=== PATIENT | male | born 1985 | race Hispanic/Latino ===

== ENCOUNTER 2022-06-28 17:16 | Emergency (ER) | payer SELFPAY ==
[2022-06-28] VITALS (8 sets, daily range): BP systolic 97–116; BP diastolic 63–84
[~2022-06-28] VITALS: Ht 172.7 cm; Wt 90.6 kg
[2022-06-28 18:16] LABS: BASO% 0.3 % (0-3); EOS% 1.6 % (0-8); HEMATOCRIT 42.4 % (39.0-50.0); HEMOGLOBIN 14.5 g/dl (14.0-18.0); IMMATURE GRANULOCYTES 0.1 % (0.0-5.0); LYMPH% 27.9 % (15-41); MEAN CELL VOLUME 89.3 fL CALC (80.0-100.0); MEAN CORPUSCULAR HGB 30.5 pG CALC (26.0-32.0); MEAN CORPUSCULAR HGB CONC 34.2 g/dL CAL (32.0-36.0); NEUT# 4.42 thou/uL (1.82-7.42); NEUT% 64.1 % (42-76); RED BLOOD COUNT 4.75 mill/uL (4.70-6.10); RED CELL DISTRI WIDTH 12.4 % (11.5-15.5)
[2022-06-28 18:26] LABS: ALBUMIN 4.8 g/dL (3.2-5.0); ALKALINE PHOSPHATASE 88 u/l (38-126); ANION GAP 14 (6-22 (CALC)); BILIRUBIN, TOTAL 0.5 mg/dL (0.2-1.3); BUN 17 mg/dL (9-20); BUN/CREATININE RATIO 15 (12-20 (CALC)); CARBON DIOXIDE 25 mmol/l (22-30); CHLORIDE 104 mmol/l (95-108); CREATININE 1.2 mg/dL (0.7-1.3); GFR FOR AFR.AMER. > 60 ML/MIN (>=60 (CALC)); GFR OTHER RACES > 60 ML/MIN (>=60 (CALC)); LIPASE 85 u/l (23-300); POTASSIUM 4.1 mmol/l (3.5-5.1); SGOT/AST 50 u/l (17-59); SODIUM 139 mmol/l (137-146); TOTAL PROTEIN 8.3 g/dL (6.3-8.2)
[2022-06-28] MEDS ORDERED: PROTONIX40 M2 PO (20:57)
[2022-06-28] MEDS ORDERED: CITRATE OF MEGNESIA PO (20:57)
[2022-06-28] MEDS ORDERED: METRONIDAZOLE500 MG PO (20:57)
[2022-06-28] MEDS ORDERED: CIPROFLOXACN500 MG PO (20:57)
== END 2022-06-28 21:20 | disposition home or self-care (01) | DRG 392 ==
LOC: EDBD 17:16 → ED 17:16
PROVIDERS: Family Medicine
DX: K29.70 Gastritis, unspecified, without bleeding (principal); K57.92 Diverticulitis of intestine, part unspecified, without perforation or abscess without bleeding; R11.2 Nausea with vomiting, unspecified
CPT/HCPCS: Q9967